=== PATIENT | male | born 1990 | race Caucasian/White ===

== ENCOUNTER → 2017-09-26 | Outpatient (CLI) | payer OTHER ==
--- NOTE | 2017-09-26 17:03 | DIAGNOSTIC IMAGING REPORT ---
PELVIS 1 OR 2 VIEWS CLINICAL HISTORY: CHRONIC RIGHT SIDED LOWER BACK PAIN pain COMPARISON: None. DISCUSSION: The bones and joint spaces appear intact. There is no evidence of fracture, dislocation or bony disease. There is no evidence for soft tissue swelling. IMPRESSION: Negative study. The above report was generated using voice recognition software. It may contain grammatical, syntax or spelling errors. Electronically signed by: Oliver Callaway M.D. 09/26/2017 5:01 PM Dictated Date/Time: 09/26/2017 5:01 PM
--- NOTE | 2017-09-26 17:04 | DIAGNOSTIC IMAGING REPORT ---
LUMBAR SPINE MIN 4 VIEWS HISTORY: 27 years-old Male CHRONIC RIGHT SIDED LOWER BACK PAIN chronic right-sided lumbar back pain COMPARISON: Lumbar spine radiographs 11/13/2014 TECHNIQUE: 5 radiographic views of the lumbar spine. FINDINGS: No acute fracture, subluxation, significant degenerative changes, spondylolysis or spondylolisthesis. Bone mineralization is within normal limits. There are 5 nonrib-bearing lumbar type vertebral segments present. Soft tissues appear unremarkable. IMPRESSION: 1. No acute fracture, subluxation or significant degenerative changes. 2. No spondylolysis or spondylolisthesis. The above report was generated using voice recognition software. It may contain grammatical, syntax or spelling errors. Electronically signed by: Adrian Armando M.D. 09/26/2017 5:03 PM Dictated Date/Time: 09/26/2017 5:01 PM
== END | disposition home or self-care (01) ==
LOC: C.RDSM 18:51
PROVIDERS: ATTEND Family Medicine
DX: M54.5 Low back pain (principal)

== ENCOUNTER → 2018-01-15 | Day surgery (SDC) | payer OTHER ==
[2018-01-12 16:07] VITALS: Ht 165.1 cm; Wt 90.9 kg
[~2018-01-15] VITALS: Ht 165.1 cm; Wt 90.9 kg
[~2018-01-15] MED LIST: BUPIVACAINE 0.25% 30 ML VIAL ONE; IOPAMIDOL INJ 61% 15 ML VIAL ONE; LIDOCAINE HCL 1% MPF 5 ML VIAL ONE
--- NOTE | 2018-01-15 13:54 | History & Physical Bridge - SC ---
H&P Re-Evaluation Bridge Note: I have examined the patient, reviewed the History & Physical and in the interval since the performance of the History & Physical I have noted the following changes of clinical significance: No changes noted
--- NOTE | 2018-01-15 14:19 | [facility] Post Operative Brief Note ---
Immediate Operative Summary Operative Date Jan 15, 2018. Pre-Operative Diagnosis RIGHT SACROILIITIS. Post-Operative Diagnosis RIGHT SACROILIITIS. Procedure(s) Performed RIGHT SACROILIAC JOINT INJECTION Surgeon DR. Mariana CARRION [employer] Librarian Surgeon(s) None Estimated Blood Loss 0 Findings Consistent with Post-Op Diagnosis Specimens NA Anesthesia Type Local Complication(s) none Disposition Disposition:
--- NOTE | 2018-01-15 14:20 | Discharge Instructions ---
Discharge Instructions Date of Service Jan 15, 2018. Visit Reason for Visit: Sacroiliitis Discharge Discharge Diagnosis / Problem: low back pain Discharge Goals Goal(s): Decrease discomfort, Improve function Activity Recommendations Activity Limitations: resume your previous activity Anesthesia . Post Anesthesia Instructions: If you have had General Anesthesia or IV Sedation: * Do not drive today. * Resume driving when surgeon permits. * Do not make important decisions or sign legal documents today. * Call surgeon for: 1. Temperature elevations greater than 101 degrees F. 2. Uncontrollable pain. 3. Excessive bleeding. 4. Persistent nausea and vomiting. 5. Medication intolerance (nausea, vomiting or rash). * For nausea and vomiting use only clear liquids such as: tea, soda, bouillon until nausea subsides, then gradually increase diet as tolerated. * If you have any concerns or questions, call your surgeon's office. If physician is unavailable and it is an emergency, call 911 or go to the nearest emergency room. . Diet Recommendations Recommended Home Diet: resume previous diet Procedures Procedures Performed: RIGHT SACROILIAC JOINT INJECTION Pending Studies Studies pending at discharge: no Medical Emergencies . Who to Call and When: Medical Emergencies: If at any time you feel your situation is an emergency, please call 911 immediately. . Non-Emergent Contact Non-Emergency issues call your: Specialist . . "Provider Documentation" section prepared by Dixon Ignacio. .
[2018-01-15 14:21] VITALS: TEMP 36.9
[2018-01-15 14:41] VITALS: BP 121/63; PULSE 56; O2SAT 97
--- NOTE | 2018-01-15 14:47 | OPERATIVE REPORT ---
DATE OF OPERATION: 01/15/2018 PREOPERATIVE DIAGNOSIS: Right sacroiliitis. POSTOPERATIVE DIAGNOSIS: Same. PROCEDURE: Right sacroiliac joint injection under fluoroscopic guidance. INDICATIONS: Patient is a 27-year-old white male who presents today for an SI joint injection. He has not responded to conservative measures, and feeling is that this should provide him with good relief. PHYSICAL EXAMINATION: Pleasant male, seated comfortably. He is point tender to palpation on his right SI joint superior aspect. It is worse with extension. Positive Abner maneuver, positive sacral compression maneuver, negative seated straight leg raises. Intact motor and sensory exam. CONSENT: Verbal and written consent was obtained from the patient. Risks and benefits reviewed. Risks include but are not limited to abscess and allergic reaction. Patient wishes to proceed. DESCRIPTION OF PROCEDURE: Patient was taken back to the special procedures room of the [facility]. Maintained in a prone position, backside was cleansed with Betadine x3, and a dry sterile dressing was applied. Fluoroscope was used to identify the right SI joint, and the overlying skin was anesthetized with 3 mL of lidocaine 1% over a 25 gauge 1-1/2-inch needle. A 25 gauge 3-1/2 inch spinal needle was then directed into the joint. Isovue 300 contrast 0.25 mL demonstrated intraarticular uptake entirely of the contrast. He then underwent injection after negative aspiration of 40 mg of Depo-Medrol and 1.5 mL of bupivacaine 0.25%. Injection was well tolerated. DISPOSITION: 1. Patient is taken out into the discharge recovery area where he will be discharged home once discharge criteria met. 2. Follow up in the [facility] office in 4 weeks time. I attest to the content of the Intraoperative Record and any orders documented therein. Any exception s are noted below.
== END | disposition home or self-care (01) ==
LOC: X.SURG 13:18
PROVIDERS: ATTEND Physical Medicine & Rehabilitation
DX: M46.1 Sacroiliitis, not elsewhere classified (principal)

== ENCOUNTER 2018-01-31 13:55 | Emergency (ER) | payer OTHER ==
[~2018-01-31] VITALS: Ht 165.1 cm; Wt 87.5 kg
[2018-01-31 13:58] VITALS: TEMP 36.6; Ht 165.1 cm; Wt 87.5 kg
--- NOTE | 2018-01-31 14:14 | EMERGENCY ROOM VISIT NOTE ---
ED Visit Note First contact with patient: 14:00 CHIEF COMPLAINT: Left second finger laceration 4-5 hours ago HISTORY OF PRESENT ILLNESS: Patient is a [id number] 27-year-old male who presents the emergency department for evaluation of a laceration to the left second finger. He accidentally cut himself with a finish grinder about 4 hours ago. He cleansed the area with soap and water applied several rounds of hydrogen peroxide. He took Tylenol and ibuprofen for discomfort. Continues to note a constant, stinging pain at the site of the wound. There has been no bleeding. He denies any numbness or tingling. He is able to move the finger normally. REVIEW OF SYSTEMS: Review of systems as per HPI. All other systems reviewed were negative. At least 6 systems reviewed. PMH: Electronic medical records are reviewed and summarized as above/below. See Problem List. Patient reports that his tetanus is up-to-date. SOCIAL HISTORY: Patient lives at home. Non-smoker. PHYSICAL EXAM: Vital Signs: Reviewed Nurse's notes. There is a 1.5 cm long laceration on the dorsal aspect of the left second finger, over the middle phalanx. Laceration does not extend across the DIP joint. The edges do not gape widely with traction. Wound is dirty with debris from the finish grinder. There is no bleeding. No deep structures such as tendons or nerves are seen in the base of the wound. Extension of the finger is full and strong. EMERGENCY DEPARTMENT COURSE: The patient was seen and evaluated as above. His old records were reviewed. 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 His tetanus was administered here in 2013. Using sterile technique, saline and Betadine cleansing, and 1% lidocaine anesthesia, the laceration was repaired with 3, 5-0 nylon sutures. Bacitracin and a light dressing were applied. I do not suspect fracture, nerve, vascular or tendon injury. Medication reconciliation: I attest that I have personally reviewed the patient' s current medication list. Blood pressure screening : Patient was found to have normal blood pressure on screening and does not require follow-up. Problem List Medical Problems: (1) Finger laceration Status: Resolved (2) Left ankle pain Status: Resolved (3) Lumbago Status: Chronic (4) Sacroiliitis, Not Elsewhere Classified Status: Chronic (5) Tendonitis, Achilles, left Status: Resolved Surgical Problems: (1) History of tonsillectomy and adenoidectomy Status: Resolved (2) History of wisdom tooth extraction Status: Resolved Current/Historical Medications No Active Prescriptions or Reported Meds Allergies Coded Allergies: No Known Allergies (Unverified , 01/15/18) Vital Signs Date Time Temp Pulse Resp B/P (MAP) Pulse Ox O2 Delivery O2 Flow Rate FiO2 01/31/18 13:58 36.6 79 20 127/86 96 Room Air Departure Information Impression Primary Impression: Finger laceration Prescriptions No Active Prescriptions or Reported Meds Referrals Prem Uribe M.D. (PCP) Patient Instructions [facility] Additional Instructions Keep wound clean and dry. Do not allow any crusting or dried blood to accumulate on sutures. Clean gently with mild soap and water daily. Do not immerse in standing water. Use an antibiotic ointment for 3-4 days, then let wound dry. Suture removal in 10-12 days. Return sooner for any signs of infection (increasing redness, swelling, drainage). Ice and elevate for swelling and pain. Ibuprofen 600 mg and Tylenol 1000 mg every 6 hrs for pain. Problem Qualifiers Primary Impression: Finger laceration Encounter type: initial encounter Finger: index finger Damage to nail status: without damage Foreign body presence: without foreign body Laterality: left Qualified Codes: S61.211A - Laceration without foreign body of left index finger without damage to nail, initial encounter
[2018-01-31] MEDS ORDERED: LIDOCAINE 1% BUFFERED INJ 20 ML VIAL INFIL ONE (14:15)
[2018-01-31 14:58] VITALS: BP 110/69; PULSE 64; O2SAT 96
== END 2018-01-31 14:50 | disposition home or self-care (01) ==
LOC: C.EDB 13:56 → C.EDD 14:50
DX: S61.211A Laceration without foreign body of left index finger without damage to nail, initial encounter (principal); W31.9XXA Contact with unspecified machinery, initial encounter